=== PATIENT | female | born 1955 | race Caucasian/White ===

== ENCOUNTER 2022-10-31 12:57 | Observation (INO) | payer MEDICARE, SELFPAY ==
[2022-10-31] VITALS (15 sets, daily range): BP systolic 130–191; BP diastolic 80–116; PULSE 38–112; RESP 12–20; TEMP 36.7–37.3; O2SAT 92–98; BMI 22.8
--- NOTE | 2022-10-31 13:05 | PC.NURSE ---
MAUREEN BYERS at
--- NOTE | 2022-10-31 13:12 | PC.NURSE ---
87-89% on RA 2L NC applied improving patient's O2 to 93%.
--- NOTE | 2022-10-31 13:20 | CT_ITS ---
PROCEDURE INFORMATION: Exam: CT Head Without Contrast Exam date and time: 10/31/2022 1:34 PM Age: 67 years old Clinical indication: Dizziness TECHNIQUE: Imaging protocol: Computed tomography of the head without contrast. Radiation optimization: All CT scans at this facility use at least one of these dose optimization techniques: automated exposure control; mA and/or kV adjustment per patient size (includes targeted exams where dose is matched to clinical indication); or iterative reconstruction. REPORTING DATA: Count of CT and Cardiac NM exams in prior 12 months: This patient has received 0 known CTs and 0 known cardiac nuclear medicine studies in the 12 months prior to the current study. COMPARISON: No relevant prior studies available. FINDINGS: Brain: Chronic infarct involving the left cerebellum. Age-related involutional changes and chronic microvascular ischemic disease. No evidence for acute transcortical infarct. No mass effect or midline shift. No extra-axial collection. No acute intracranial hemorrhage. Basal cisterns are patent. Cerebral ventricles: No ventriculomegaly. Paranasal sinuses: Visualized sinuses are unremarkable. No fluid levels. Mastoid air cells: Visualized mastoid air cells are well aerated. Bones/joints: Unremarkable. No acute fracture. Soft tissues: Unremarkable. IMPRESSION: No evidence for acute transcortical infarct, acute intracranial hemorrhage, or mass effect.
--- NOTE | 2022-10-31 13:30 | PC.NURSE ---
pt ambulated to bathroom prio to going to CT
--- NOTE | 2022-10-31 13:40 | ECG_ITS ---
APPROVED REPORT Exam: Resting ECG HR:88 bpm ECG Measurements Heart Rate 88 AXES VA 179 P 44 QRSd 122 QRS -34 QT 390 T 77 QTc 435 Conclusion SINUS RHYTHM POSSIBLE LEFT ATRIAL ENLARGEMENT [-0.1mV P-WAVE IN V1/V2] LEFT AXIS DEVIATION [QRS AXIS < -30] POSSIBLE RIGHT VENTRICULAR CONDUCTION DELAY [RSR (QR) IN V1/V2] LEFT VENTRICULAR HYPERTROPHY AND ST-T CHANGE [VOLTAGE CRITERIA PLUS ST/T ABNORMALITY] ABNORMAL ECG UNCONFIRMED REPORT Electronically signed by : Edwardo Desai MD 11/01/2022 20:23:18
[2022-10-31 14:01] LABS: Chloride 96 mmol/L (98-107); Sodium 138 mmol/L (136-145)
[2022-10-31 14:02] LABS: Potassium 3.5 mmoL/L (3.5-5.1)
[2022-10-31 14:04] LABS: Alanine Aminotransferase 19 U/L (12-78); Albumin Level 4.7 g/dl (3.5-5.0); Albumin/Globulin Ratio 1.3 (1.1-1.8); Alkaline Phosphatase 114 U/L (38-126); Anion Gap 20.5 mEq/L (5-15); Aspartate Amino Transferase 25 U/L (14-36); Bilirubin,Total 0.5 mg/dl (0.2-1.3); Blood Urea Nitrogen 19 mg/dl (7-17); Carbon Dioxide 25 mmol/L (22.0-30.0); Creatinine Clearance Estimated 59 mL/min (50-200); Estimated Glomerular Filt Rate 62 ml/min (>60); GFR (African American) 76 ML/MIN (>60); Globulin 3.5 g/dL (1.3-3.2); Total Protein,Serum 8.2 g/dl (6.3-8.2)
[2022-10-31 14:05] LABS: Calcium 9.9 mg/dl (8.4-10.2); Glucose 132 mg/dl (74-100)
[2022-10-31 14:09] LABS: Basophils % 0.2 % (0.1-2.0); Eosinophils % 0.4 % (0.1-12.0); Hematocrit 42.1 % (37.0-47.0); Hemoglobin 13.5 g/dL (12.2-16.2); Lymphocytes # 0.6 K/mm3 (0.7-4.5); Lymphocytes % 8.7 % (10-50); Mean Corpuscular HGB Conc 32.1 g/dL (31.8-35.4); Mean Corpuscular Hemoglobin 25.2 pg (27.0-31.2); Mean Corpuscular Volume 78.4 fl (81-99); Mean Platelet Volume 7.2 fl (7.4-10.4); Monocytes # 0.2 K/mm3 (0.1-1.0); Monocytes % 2.6 % (1.7-9.3); Neutrophils # 5.6 K/mm3 (1.8-7.8); Neutrophils % 88.1 % (37.0-80.0); Platelet Count 462 K/mm3 (142-424); Red Blood Count 5.37 M/mm3 (4.20-5.40); Red Cell Distribution Width 17.7 % (11.5-17.5); White Blood Count 6.4 K/mm3 (4.8-10.8)
[2022-10-31 14:10] LABS: MANUAL DIFFERENTIAL MANUAL DIFFERENTIAL (MANUAL DIFF)
[2022-10-31 14:17] LABS: Lymphocytes % 10 % (10-50); Monocytes % 1 % (2-9); Neutrophils % 89 % (42-76); Total Cells Counted 100
[2022-10-31 14:18] LABS: Platelet Estimate Slight Inc; RBC Morphology Normal
--- NOTE | 2022-10-31 14:21 | PC.NURSE ---
BP 164/114 prior to Hydralazine IV
--- NOTE | 2022-10-31 14:44 | PC.NURSE ---
pt vomiting states she wet herself, clean gown and blankets put on pt
--- NOTE | 2022-10-31 14:52 | PC.NURSE ---
Reassessed patient's BP 152/102 HR 100. Upon reassessment patient states her dizziness in getting worse. notified.
[2022-10-31 15:16] LABS: Microscopic, Urine URINE MICROSCOPIC (MICROSCOPIC)
[2022-10-31 15:31] LABS: Appearance,Urine CLEAR (Clear); Bilirubin,Urine Negative (Negative); Blood, Urine Negative (Negative); Color,Urine YELLOW (Yellow); Glucose,Urine (UA) Negative (Negative); Ketones,Urine TRACE (Negative); Leukocyte Esterase,Urine Negative (Negative); Nitrate,Urine Negative (Negative); Protein,Urine 1+ (Negative); Specific Gravity, Urine >= 1.030 (1.005-1.030); Urobilinogen,Urine 0.2 EU/dl (0.2)
[2022-10-31 15:32] LABS: Bacteria,Urine 1+ /lpf; WBC,Urine Occasional #/hpf (0-3)
--- NOTE | 2022-10-31 15:49 | PC.NURSE ---
Rounded on patient; call ceja within reach. Patient resting comfortably.
--- NOTE | 2022-10-31 15:56 | PC.NURSE ---
Rounded on patient; patient stated Haldol helped nausea. @ BS
--- NOTE | 2022-10-31 16:04 | HMH.EDGENADL ---
Discharge Plan Disposition Patient Disposition: Home, Self-Care Condition: Good Prescriptions Prescriptions: New ondansetron 4 mg tablet,disintegrating 4 mg PO Q8H PRN (Reason: nausea and vomiting) 3 Days Qty: 10 0RF No Action losartan 100 mg tablet 100 mg PO DAILY Label Comments: TAKE 1 TABLET BY MOUTH EVERY DAY bupropion HCl 300 mg tablet extended release 24 hr 300 mg PO AM Referrals Follow up/Referrals: Sonal Alves APRN [Primary Care Provider] - See instructions Activity Restrictions/Add. Instructions Additional Instructions/Restrictions: Zofran as needed. Follow-up PCP in the morning. Return to ER for worsening Clinical Impressions Clinical Impression: Vertigo, Nausea & vomiting Discharge ED Provider: Karsten Marques General Adult HPI General Chief complaint: Dizziness Stated complaint: vertigo Time Seen by Provider: 10/31/22 13:04 Mode of Arrival: EMS Source of Information: Patient Limitations: No Limitations Description of Symptoms (Recalled from ER Triage Doc. by RN): Presents to ED via EMS with complaints of dizziness described as room spinning , generalized weakness, and vomiting since Tuesday morning. Patient has been unable to take BP medicaion (Losartan) due to n/v. Denies hx of vertigo. Denies urinary symptoms. History of Present Illness HPI narrative: 67yo F presents the ER secondary to dizziness. States the room is spinning. This began yesterday morning and has not stopped. Denies history of previous episode. Denies any recent illness, fever. Reports nausea and vomiting secondary to to the dizziness. Reports that she does has not been able to take her blood pressure medication for 2 days secondary to her extreme nausea. No fall or other injury. Related Data Home Medications Medication Instructions Recorded Confirmed bupropion HCl 300 mg 24 hr tablet, 300 mg PO AM Depression 10/31/22 10/31/22 extended release losartan 100 mg tablet 100 mg PO DAILY High blood pressure 10/31/22 10/31/22 Previous Rx's Medication Instructions Recorded ondansetron 4 mg disintegrating 4 mg PO Q8H PRN nausea and 10/31/22 tablet vomiting 3 days #10 tabs Allergies Allergy/AdvReac Type Severity Reaction Status Date / Time Cephalosporins Allergy Unknown Verified 10/31/22 14:10 [CEPHALOSPORINS] Penicillins [PENICILLINS] Allergy Unknown Verified 10/31/22 14:10 [facility] Disclaimer: The information contained in this section may have been updated after the patient was seen, as this information can be updated by other users. Social History Smoking Status: Current every day smoker alcohol intake: never current occupational status: retired Travel in the last 8 weeks: None ROS Obtained: Yes Systems reviewed as appropriate & no additional complaints except as documented Constitutional Constitutional: Reports as per HPI Physical Exam General General appearance: alert and in no apparent distress Head Head exam: atraumatic and normocephalic Eye Eye exam: Present normal appearance and PERRL ENT ENT exam: Present normal exam Neck Neck exam: Present full ROM and trachea midline; Absent tenderness or meningismus Chest Chest inspection: Present symmetric chest wall rise Respiratory Respiratory exam: Present normal lung sounds bilaterally; Absent respiratory distress Cardiovascular Cardiovascular exam: Present regular rate, normal rhythm and normal heart sounds Abdominal Exam Abdominal exam: Present soft and normal bowel sounds; Absent distention or tenderness Extremities Exam Extremities exam: Present normal inspection and full ROM; Absent tenderness Neurological Exam Neurological exam: Present alert, oriented X3 and CN II-XII intact Psychiatric Psychiatric exam: Present normal affect and normal mood Skin Skin exam: Present warm, dry and intact Medical Decision Making Medical Records Medical recor
--- NOTE | 2022-10-31 16:32 | PC.NURSE ---
pt reports feeling like needs to void, states she feels like she was not able to go well on bedpan earlier, pt requesting to use bsc. Staff assist x2 to bsc, pt reports dizziness with any movement. Pt unable to stand independently. Pt successfully able to void, urine strong smelling-concentrated in appearance. Notified ER pt was full staff assist x2 to stand and about urine. pt back in bed, call bed in reach.
--- NOTE | 2022-10-31 17:56 | PC.NURSE ---
walked patient in room and into the sanchez, patient tolerated well but daughter and patient both feel she should be admitted overnight. Spoke with ED doctor and he will discuss with hospitalist
--- NOTE | 2022-10-31 18:04 | PC.NURSE ---
Dr Marques talking to Dr Singer
--- NOTE | 2022-10-31 18:04 | PC.NURSE ---
Updated patient and family members on plan of care for patient. Nothing else requested by family or patient at this time.
--- NOTE | 2022-10-31 18:08 | PC.NURSE ---
covid swab sent to lab
--- NOTE | 2022-10-31 18:08 | PC.NURSE ---
non destructive testing supervisor notified of admission.
[2022-10-31 18:12] LABS: Coronavirus 19, PCR Not Detected (NotDetected); Influenza A, PCR Not Detected (NotDetected); Influenza B, PCR Not Detected (NotDetected)
--- NOTE | 2022-10-31 18:43 | PC.NURSE ---
Attempted to provide report, RN refused.
--- NOTE | 2022-10-31 18:58 | PC.NURSE ---
Patient and family notified of patient being moved to room 212 after change of shift. Allergy bracelet and fall risk bracelet placed on patient's left arm. Patient identification band also on left arm.
--- NOTE | 2022-10-31 19:07 | PC.NURSE ---
received report from Nahed in ED.
--- NOTE | 2022-10-31 19:07 | PC.NURSE ---
Report given to landcare officer Jackelyn GIBSON.
--- NOTE | 2022-10-31 19:10 | PC.NURSE ---
Given another update to patient's and daughter. Asked if they needed anything; nothing needed at this time. Call ceja within reach. Report handed off to shift supervisor rn.
--- NOTE | 2022-10-31 19:51 | PC.NURSE ---
pt arrived to floor at this time
--- NOTE | 2022-10-31 20:13 | EXP.HP ---
History of Present Illness *Admission Date: 10/31/22 *Reason for visit:: dizziness *History of present illness: This is a very pleasant 67-year-old female with a past medical history of hypertension and depression who presents emergency department today with complaints of dizziness. She reports dizziness began yesterday morning and has been consistent. She reports that the room is spinning. She also endorses nausea and vomiting associated with dizziness. She has not been able to do her blood pressure medicines in several days due to the nausea. She denies any fall or injury. She denies any fever or recent illness, But does complain of mild sinus congestion over the past. Upon admission to the hospital, she was noted to have nystagmus when looking to the left and states that her dizziness is worse in any position. She states the dizziness improves with her eyes closed. She was medicated in the emergency department and had mild relief in symptoms. She did try to ambulate prior to discharge from the ER and had worsening symptoms upon ambulation. It was determined that observation would be in her benefit. She is admitted to hospital service for further evaluation and management. [facility] Disclaimer: The information contained in this section may have been updated after the patient was seen, as this information can be updated by other users. Social History (Updated 10/31/22 @ 20:08 by Radha Corona RN) Smoking Status: Current every day smoker alcohol intake: never current occupational status: retired Travel in the last 8 weeks: None Review of Systems Review of Systems Review of systems:: pertinent systems reviewed and negative unless documented below Review of systems (narrative): See HPI Meds Home Medications and Allergies Home Medications Medication Instructions Recorded Confirmed Type bupropion HCl 300 mg 24 hr tablet, 300 mg PO AM Mood 10/31/22 10/31/22 History extended release losartan 100 mg tablet 100 mg PO DAILY High blood pressure 10/31/22 10/31/22 History New Prescriptions to Start Prescriptions: Allergies Allergy/AdvReac Type Severity Reaction Status Date / Time Cephalosporins Allergy Unknown Verified 10/31/22 14:10 [CEPHALOSPORINS] Penicillins [PENICILLINS] Allergy Unknown Verified 10/31/22 14:10 Exam Data for Last 24 hours Vital signs and Labs for Last 24 Hours: Temp Pulse Resp BP Pulse Ox 98.5 F 100 H 17 161/95 H 98 10/31/22 12:57 10/31/22 18:30 10/31/22 18:30 10/31/22 18:30 10/31/22 18:30 Laboratory Results - last 24 hr 10/31/22 13:51: WBC 6.4, RBC 5.37, Hgb 13.5, Hct 42.1, MCV 78.4 L, MCH 25.2 L, MCHC 32.1, RDW 17.7 H, Plt Count 462 H, MPV 7.2 L, Neut % (Auto) 88.1 H, Lymph % (Auto) 8.7 L, [place] % (Auto) 2.6, Eos % (Auto) 0.4, Baso % (Auto) 0.2, Neut # (Auto) 5.6, Lymph # (Auto) 0.6 L, [place] # (Auto) 0.2, Eos # (Auto) 0.0, Baso # (Auto) 0.0, Total Counted 100, Neutrophils % (Manual) 89 H, Lymphocytes % (Manual) 10, Monocytes % (Manual) 1 L, Platelet Estimate Slight inc, RBC Morphology Normal 10/31/22 13:51: Sodium 138, Potassium 3.5, Chloride 96 L, Carbon Dioxide 25, Anion Gap 20.5 H, BUN 19 H, Creatinine 0.90, Estimated Creat Clear 59, Estimated GFR 62, Est GFR ( Amer) 76, Glucose 132 H, Calcium 9.9, Total Bilirubin 0.5, AST 25, ALT 19, Alkaline Phosphatase 114, Total Protein 8.2, Albumin 4.7, Globulin 3.5 H, Albumin/Globulin Ratio 1.3 10/31/22 15:10: Urine Color Yellow, Urine Appearance Clear, Urine pH 6.0, Ur Specific [place] >= 1.030, Urine Protein 1+, Urine Glucose (UA) Negative, Urine Ketones Trace, Urine Blood Negative, Urine Nitrate Negative, Urine Bilirubin Negative, Urine Urobilinogen 0.2, Ur Leukocyte Esterase Negative, Urine RBC None, Urine WBC Occasional, Ur Squamous Epith Cells None, Urine Bacteria 1+ 10/31/22 18:04: SARS-CoV-2 (PCR) Not detected, Influenza A Untype (PCR) Not detected, Influenza Type B (PCR) Not detected I & O for Last
--- NOTE | 2022-10-31 22:21 | PC.NURSE ---
got pt up to bsc with 2 assists, pt very wobbly and impulsive, pt voided, got pt back to bed and placed bed alarm on bed, call light within reach
[2022-11-01] VITALS: BP 172/108; PULSE 110; RESP 20; TEMP 36.8; O2SAT 92
[2022-11-01 04:00] VITALS: BP 170/112; PULSE 101; RESP 19; TEMP 36.9; O2SAT 90; BMI 21.7
[2022-11-01 07:09] LABS: Alanine Aminotransferase 14 U/L (12-78); Albumin Level 4.2 g/dl (3.5-5.0); Albumin/Globulin Ratio 1.4 (1.1-1.8); Alkaline Phosphatase 99 U/L (38-126); Anion Gap 13.4 mEq/L (5-15); Aspartate Amino Transferase 23 U/L (14-36); Bilirubin,Total 0.4 mg/dl (0.2-1.3); Blood Urea Nitrogen 24 mg/dl (7-17); Calcium 9.3 mg/dl (8.4-10.2); Carbon Dioxide 26 mmol/L (22.0-30.0); Chloride 104 mmol/L (98-107); Creatinine Clearance Estimated 56 mL/min (50-200); Estimated Glomerular Filt Rate 83 ml/min (>60); GFR (African American) 101 ML/MIN (>60); Globulin 2.9 g/dL (1.3-3.2); Glucose 114 mg/dl (74-100); Magnesium 2.2 mg/dl (1.6-2.3); Potassium 3.4 mmoL/L (3.5-5.1); Sodium 140 mmol/L (136-145); Total Protein,Serum 7.1 g/dl (6.3-8.2)
[2022-11-01 07:11] LABS: Basophils % 0.1 % (0.1-2.0); Eosinophils % 0.2 % (0.1-12.0); Hematocrit 38.1 % (37.0-47.0); Hemoglobin 12.2 g/dL (12.2-16.2); Lymphocytes # 0.8 K/mm3 (0.7-4.5); Lymphocytes % 7.8 % (10-50); Mean Corpuscular HGB Conc 32.1 g/dL (31.8-35.4); Mean Corpuscular Hemoglobin 25.2 pg (27.0-31.2); Mean Corpuscular Volume 78.5 fl (81-99); Mean Platelet Volume 7.9 fl (7.4-10.4); Monocytes # 0.5 K/mm3 (0.1-1.0); Monocytes % 4.8 % (1.7-9.3); Neutrophils # 8.3 K/mm3 (1.8-7.8); Platelet Count 453 K/mm3 (142-424); Red Blood Count 4.85 M/mm3 (4.20-5.40); Red Cell Distribution Width 17.9 % (11.5-17.5); White Blood Count 9.6 K/mm3 (4.8-10.8)
[2022-11-01 07:12] LABS: MANUAL DIFFERENTIAL MANUAL DIFFERENTIAL (MANUAL DIFF)
--- NOTE | 2022-11-01 07:21 | HMH.PHAINT1 ---
Pharmacy Intervention Comments: HOME MEDICATION LIST VERIFIED THROUGH LIST FROM OUTSIDE PHARMACY.
[2022-11-01 08:00] VITALS: PULSE 116; RESP 18; TEMP 37.2; O2SAT 96
[2022-11-01 08:24] LABS: Lymphocytes % 6 % (10-50); Monocytes % 3 % (2-9); Neutrophils % 91 % (42-76); Total Cells Counted 100
[2022-11-01 08:25] LABS: Microcytosis 1+
[2022-11-01 08:48] LABS: Platelet Estimate Slight Increase
--- NOTE | 2022-11-01 11:27 | HMH.PTEV ---
Physical Therapy Evaluation Rehab PT IP Evaluation Start: 10/31/22 18:18 Freq: ONCE Status: Active Protocol: Document 11/01/22 09:30 PHORNE (Rec: 11/01/22 11:27 PHORNE [id number]) Subjective/History History History 67 yowf adm to hospital with c /o dizziness/vertigo and general weakness x 1-2 days. She reports never having any episodes similar to this in the past. She reports vertigo is continuous and lasting for 5-10 mins per episode and no specific position brings on her symptoms. She reports 1 wk hx of R inner ear pain, but no tinnitus. She reports she lives with her spouse, 1-2 steps to enter the home and she is generally independent with all mobility without AD. Subjective Subjective Current vertigo symptoms are decreased, but she continues to be nauseated and unbalanced with walking. Rehab PT IP Eval Objective Appearance Patient Behavior Appropriate Patient Orientation Person,Place,Time Difficulty following instructions none Speech Pattern Clear Ambulation Patient Able to Ambulate Yes Ambulation Observation IP General Gait Pattern Observation Ataxic Gait Ambulation Distance (feet) 20 Ambulation Assistive Device None Ambulation Ability Contact Guard/Hand Hold Balance Ability to Arise Able, uses arms to help Sitting Balance Steady, safe Standing Balance Steady, wide stance Dynamic Sitting Balance Ability Good Dynamic Standing Balance Ability Fair Transfers Bed Transfer Ability Supervision/Stand by Chair Transfer Ability Contact Guard/Hand Hold Sit to Stand Bed Transfer Ability Contact Guard/Hand Hold Sit to Stand Chair Transfer Ability Contact Guard/Hand Hold ROM All Extremities PT ROM Status WFL MMT All Extremities PT MMT WFL Rehab PT IP prob,goals,plan Problems Date of Evaluation: 11/01/22 Discharge Plan PT Discharge Plan Pt is appropriate to return home once medically stable for d/c. Recommend outpatient therapy for vertigo treatment as tolerated. G -code Required No Eval Complexit
--- NOTE | 2022-11-01 11:27 | EXP.DC.SUM ---
General Admission date:: 10/31/22 HPI HPI HPI: This is a very pleasant 67-year-old female with a past medical history of hypertension and depression who presents emergency department today with complaints of dizziness. She reports dizziness began yesterday morning and has been consistent. She reports that the room is spinning. She also endorses nausea and vomiting associated with dizziness. She has not been able to do her blood pressure medicines in several days due to the nausea. She denies any fall or injury. She denies any fever or recent illness, But does complain of mild sinus congestion over the past. Upon admission to the hospital, she was noted to have nystagmus when looking to the left and states that her dizziness is worse in any position. She states the dizziness improves with her eyes closed. She was medicated in the emergency department and had mild relief in symptoms. She did try to ambulate prior to discharge from the ER and had worsening symptoms upon ambulation. It was determined that observation would be in her benefit. She is admitted to hospital service for further evaluation and management. Hospital Course Hospital Course Hospital Course: This is a 67-year-old female who is admitted to the hospital for further observation of vertigo.? Work-up in the ER included CT, no acute stroke. Labs relatively. Hypertensive but this improved with resumption of home regimen and initiation of amlodipine. At this time suspect vertigo is benign or related to fluid on her ear or otolith dysfunction. PT evaluated, recommend outpatient vestibular rehab. Stable for discharge home. Problems addressed as follows: Vertigo Nausea and vomiting Work-up in the ER showed no concern for stroke on CT. Labs relatively unremarkable. Treated symptomatically with meclizine. Improvement in vertigo by the morning but not complete resolution. PT evaluated, recommended outpatient PT and home with walker for increased stability. Medically stable for discharge home. We will continue outpatient treatment. Sent home with meclizine, Zofran. No further emesis during hospitalization, did have nausea after breakfast secondary to dizziness. Hypertension Resumed oral ARB. Tolerating well. Still hypertensive, initiated on low-dose amlodipine. Continue for now. Follow-up with PCP for further adjustment. Extensive amount of time spent counseling patient and family this morning. Stable for discharge home. Offered reassurance and counseled on expectations after discharge. Medication sent to [facility]. Initiate Flonase for nasal congestion and allergy symptoms. No indication for antibiotics at this time. No concern for otitis media. Spent 40 minutes in discharge counseling and direct care with patient. Exam Data for Last 24 hours Vital signs and Labs for Last 24 Hours: Temp Pulse Resp BP Pulse Ox 98.9 F 116 H 18 170/112 H 96 11/01/22 08:00 11/01/22 08:00 11/01/22 08:00 11/01/22 04:00 11/01/22 08:00 Laboratory Results - last 24 hr 10/31/22 13:51: WBC 6.4, RBC 5.37, Hgb 13.5, Hct 42.1, MCV 78.4 L, MCH 25.2 L, MCHC 32.1, RDW 17.7 H, Plt Count 462 H, MPV 7.2 L, Neut % (Auto) 88.1 H, Lymph % (Auto) 8.7 L, [place] % (Auto) 2.6, Eos % (Auto) 0.4, Baso % (Auto) 0.2, Neut # (Auto) 5.6, Lymph # (Auto) 0.6 L, [place] # (Auto) 0.2, Eos # (Auto) 0.0, Baso # (Auto) 0.0, Total Counted 100, Neutrophils % (Manual) 89 H, Lymphocytes % (Manual) 10, Monocytes % (Manual) 1 L, Platelet Estimate Slight inc, RBC Morphology Normal 10/31/22 13:51: Sodium 138, Potassium 3.5, Chloride 96 L, Carbon Dioxide 25, Anion Gap 20.5 H, BUN 19 H, Creatinine 0.90, Estimated Creat Clear 59, Estimated GFR 62, Est GFR ( Amer) 76, Glucose 132 H, Calcium 9.9, Total Bilirubin 0.5, AST 25, ALT 19, Alkaline Phosphatase 114, Total Protein 8.2, Albumin 4.7, Globulin 3.5 H, Albumin/Globulin Ratio 1.3 10/31/22 15:10: Urine Color Yellow, Urine Appearance Clear, Urine pH 6.0, Ur Sp
--- NOTE | 2022-11-01 11:30 | PC.NURSE ---
Notified Dr. Singer - 157/94 107HR 100.2 oral temperature. No new orders given.
--- NOTE | 2022-11-01 14:01 | CARE MANAGER ---
Initially, it was though tpatient needed walker, however she already had one at home. At that time she had chosen [facility] for [facility]. Now she needs BSC. Order and information sent. ARTHUR Harrell
--- NOTE | 2022-11-01 14:19 | HMH.PHAINT1 ---
Pharmacy Intervention Comments: Discharge medication counseling completed. Patient was asleep so I spoke to her daughter. She is to start the following: -amlodipine: discussed potential side effects of headache and drowsiness and said to inform provider if dizziness occurred after taking -flonase: told of potential side effects of nasal irritation, change in taste and/or smell, or headache after use -meclizine:as needed for dizziness. Said main side effect was drowsiness. Told her to make sure not to drive after taking. -ondansetron: as needed for nausea/vomiting. Warned of side effects such as potential headache or drowsiness Patient's daughter verbalized understanding and had no questions.
--- NOTE | 2022-11-02 14:05 | CARE MANAGER ---
Left message for post-discharge follow-up phone call, no answer.
--- NOTE | 2022-11-03 11:25 | CARE MANAGER ---
Contacted patient related hospital discharge. Spoke with daughter who states they received patient's new medications and are aware of follow up appointment. Denies questions or concerns. ARTHUR Harrell
== END 2022-11-01 16:24 | disposition home or self-care (01) ==
LOC: ER 17:26 → 2ND 18:39
PROVIDERS: Admitting Provider Internal Medicine Adolescent Medicine; Emergency Provider Family Medicine; PCP Nurse Practitioner Family; Visit Provider Internal Medicine Adolescent Medicine
DX: R42 Dizziness and giddiness (principal); I10 Essential (primary) hypertension; Z79.899 Other long term (current) drug therapy; Z20.822 Contact with and (suspected) exposure to COVID-19
CPT/HCPCS: G0378; 36415; 70450; 80053; 81001; 83735; 85007; 85025; 87636; 93005; 97162; 99285; C9803; J2405; U0003; U0005

== ENCOUNTER 2024-01-19 14:05 | Outpatient (CLI) | payer MEDICARE, SELFPAY ==
[2024-01-19 14:08] LABS: Basophils # 0.1 K/mm3 (0-0.2); Basophils % 1.1 % (0.1-2.0); Eosinophils # 0.2 K/mm3 (0.0-0.4); Eosinophils % 3.3 % (0.1-12.0); Hematocrit 34.5 % (37.0-47.0); Hemoglobin 10.7 g/dL (12.2-16.2); Lymphocytes # 1.3 K/mm3 (0.7-4.5); Lymphocytes % 25.6 % (10-50); Mean Corpuscular Hemoglobin 23.2 pg (27.0-31.2); Mean Corpuscular Volume 74.8 fl (81-99); Mean Platelet Volume 8.1 fl (7.4-10.4); Monocytes # 0.3 K/mm3 (0.1-1.0); Monocytes % 5.8 % (1.7-9.3); Neutrophils # 3.2 K/mm3 (1.8-7.8); Neutrophils % 64.1 % (37.0-80.0); Platelet Count 501 K/mm3 (142-424); Red Blood Count 4.61 M/mm3 (4.20-5.40); Red Cell Distribution Width 18.7 % (11.5-17.5); White Blood Count 4.9 K/mm3 (4.8-10.8)
[2024-01-19 14:38] LABS: Erythrocyte Sedimentation Rate 11 mm/hr (0-30)
[2024-01-19 14:44] LABS: Alanine Aminotransferase 13 U/L (12-78); Albumin Level 4.3 g/dl (3.5-5.0); Albumin/Globulin Ratio 1.3 (1.1-1.8); Alkaline Phosphatase 96 U/L (38-126); Anion Gap 13.3 mEq/L (5-15); Aspartate Amino Transferase 19 U/L (14-36); Bilirubin,Total 0.6 mg/dl (0.2-1.3); Blood Urea Nitrogen 18 mg/dl (7-17); Carbon Dioxide 27 mmol/L (22.0-30.0); Chloride 100 mmol/L (98-107); Chol/HDL Ratio 2.3 (1-3.5); Cholesterol 219 mg/dl (140-200); Estimated Glomerular Filt Rate 62 ml/min (>60); GFR (African American) 75 ML/MIN (>60); Globulin 3.2 g/dL (1.3-3.2); Glucose 92 mg/dl (74-100); HDL Cholesterol 96 mg/dl (40-60); Magnesium 2.1 mg/dl (1.6-2.3); Phosphorous 3.8 mg/dl (2.5-4.5); Potassium 4.3 mmoL/L (3.5-5.1); Sodium 136 mmol/L (136-145); Total Protein,Serum 7.5 g/dl (6.3-8.2); Triglycerides 117 mg/dl (30-150); Uric Acid 2.5 mg/dl (2.5-6.2); VLDL Cholesterol 23 mg/dL (0-40)
[2024-01-19 14:55] LABS: C-Reactive Protein 26.5 mg/L (0-4); Direct LDL Cholesterol 77.49 mg/dL (100-129)
[2024-01-19 15:00] LABS: 25-OH Vitamin D, Total 20.4 ng/mL (30-100); Free T4 (Free Thyroxine) 1.12 ng/dl (0.78-2.19)
[2024-01-19 15:15] LABS: Thyroid Stimulating Hormone 1.91 uIU/mL (0.465-4.68)
[2024-01-19 15:50] LABS: Vitamin B12 389 pg/mL (239-931)
[2024-01-19 15:53] LABS: Folate 6.75 ng/mL
[2024-01-19 16:26] LABS: Iron 49 ug/dL (37-170)
[2024-01-19 16:35] LABS: Total Iron Binding Capacity 426 ug/dL (265-497)
[2024-01-19 16:35] LABS: Microscopic, Urine URINE MICROSCOPIC (MICROSCOPIC)
[2024-01-19 16:40] LABS: Appearance,Urine CLEAR (Clear); Bilirubin,Urine Negative (Negative); Blood, Urine Negative (Negative); Color,Urine YELLOW (Yellow); Glucose,Urine (UA) Negative (Negative); Ketones,Urine Negative (Negative); Leukocyte Esterase,Urine 2+ (Negative); Nitrate,Urine Negative (Negative); Protein,Urine Negative (Negative); Urobilinogen,Urine 0.2 EU/dl (0.2)
[2024-01-19 16:56] LABS: Bacteria,Urine 4+ /lpf; Squamous Epithelial Cell,Urine Occasional #/hpf (0-5)
[2024-01-19 17:02] LABS: Ferritin 8.56 ng/ml (11.1-264)
[2024-01-23 20:07] LABS: Anti-Centromere B Antibodies <0.2 AI (0.0-0.9); Anti-DNA (DS) Ab Qn 8 IU/mL (0-9); Anti-Jo-1 <0.2 AI (0.0-0.9); Antichromatin Antibodies <0.2 AI (0.0-0.9); Antiscleroderma-70 Antibodies <0.2 AI (0.0-0.9); RNP Antibodies 1.3 AI (0.0-0.9); Sjogren's Anti-SS-A >8.0 AI (0.0-0.9); Sjogren's Anti-SS-B <0.2 AI (0.0-0.9)
[2024-02-03 09:33] LABS: Anti-Centromere B Abs Charge YES; Anti-DNA (DS) Ab Charge YES; Anti-Jo-1 Charge YES; Antichromatin Abs Charge YES; Antinuclear Antibodies (ANA) POSITIVE; Antiscleroderma-70 Abs Charge YES; RNP Antibodies Charge YES; Sjogren's Anti-SS-A Ab Charge YES; Sjogren's Anti-SS-B Ab Charge YES; Smith Antibodies Charge YES
== END 2024-01-19 23:59 | disposition home or self-care (01) ==
LOC: LAB.DROPOF 14:05
PROVIDERS: PCP Nurse Practitioner Family; Visit Provider Nurse Practitioner Family
DX: E78.5 Hyperlipidemia, unspecified; M25.50 Pain in unspecified joint; R53.83 Other fatigue; I10 Essential (primary) hypertension; R41.3 Other amnesia; R41.0 Disorientation, unspecified; R42 Dizziness and giddiness; E55.9 Vitamin D deficiency, unspecified; R29.6 Repeated falls; Z13.1 Encounter for screening for diabetes mellitus; Z13.220 Encounter for screening for lipoid disorders; Z72.0 Tobacco use
CPT/HCPCS: 80050; 80053; 80061; 81001; 82306; 82607; 82728; 82746; 83036; 83540; 83550; 83735; 84100; 84156; 84439; 84443; 84550; 85025; 85651; 86038; 86140; 86225; 86235; 87086; 87088; 87186

== ENCOUNTER 2024-04-03 16:35 | Outpatient (CLI) | payer MEDICARE, SELFPAY ==
[2024-04-03 16:45] LABS: Basophils # 0.1 K/mm3 (0-0.2); Basophils % 1.1 % (0.1-2.0); Eosinophils # 0.2 K/mm3 (0.0-0.4); Eosinophils % 3.1 % (0.1-12.0); Hematocrit 44.1 % (37.0-47.0); Hemoglobin 14.9 g/dL (12.2-16.2); Lymphocytes # 1.3 K/mm3 (0.7-4.5); Lymphocytes % 17.7 % (10-50); Mean Corpuscular HGB Conc 33.8 g/dL (31.8-35.4); Mean Corpuscular Hemoglobin 29.8 pg (27.0-31.2); Mean Platelet Volume 7.3 fl (7.4-10.4); Monocytes # 0.5 K/mm3 (0.1-1.0); Monocytes % 6.6 % (1.7-9.3); Neutrophils # 5.3 K/mm3 (1.8-7.8); Neutrophils % 71.5 % (37.0-80.0); Platelet Count 355 K/mm3 (142-424); Red Blood Count 5.01 M/mm3 (4.20-5.40); Red Cell Distribution Width 19.5 % (11.5-17.5); White Blood Count 7.4 K/mm3 (4.8-10.8)
[2024-04-03 18:16] LABS: Ferritin 41.9 ng/ml (11.1-264)
== END 2024-04-03 23:59 | disposition home or self-care (01) ==
LOC: LAB.DROPOF 16:35
PROVIDERS: PCP Nurse Practitioner Family; Visit Provider Nurse Practitioner Family
DX: D50.9 Iron deficiency anemia, unspecified (principal)
CPT/HCPCS: 82728; 85025

== ENCOUNTER 2025-02-01 11:05 | Outpatient (CLI) | payer MEDICARE, SELFPAY ==
[2025-02-01 17:13] LABS: Hematocrit 42.1 % (37.0-47.0); Hemoglobin 13.8 g/dL (12.2-16.2); Immature Granulocytes % 0.3 %; Mean Corpuscular HGB Conc 32.8 g/dL (31.8-35.4); Mean Corpuscular Hemoglobin 30.3 pg (27.0-31.2); Mean Corpuscular Volume 92.3 fl (81-99); Nucleated Red Blood Cells % 0 %; Platelet Count 322 K/mm3 (142-424); Red Blood Count 4.56 M/mm3 (4.20-5.40); Red Cell Distribution Width-SD 46.5 fL; White Blood Count 7.7 K/mm3 (4.8-10.8)
[2025-02-01 18:03] LABS: Iron 90 ug/dL (37-170)
[2025-02-01 18:14] LABS: Total Iron Binding Capacity 290 ug/dL (265-497)
[2025-02-01 18:18] LABS: 25-OH Vitamin D, Total 23.6 ng/mL (30-100)
[2025-02-01 18:38] LABS: Ferritin 46.2 ng/ml (11.1-264)
[2025-02-01 21:13] LABS: Vitamin B12 346 pg/mL (239-931)
== END 2025-02-01 23:59 | disposition home or self-care (01) ==
PROVIDERS: PCP Nurse Practitioner Family; Visit Provider Nurse Practitioner Family
DX: D50.9 Iron deficiency anemia, unspecified (principal); E55.9 Vitamin D deficiency, unspecified
CPT/HCPCS: 82306; 82607; 82728; 83540; 83550; 85025

== ENCOUNTER 2025-02-12 12:28 | Outpatient (CLI) | payer MEDICARE, SELFPAY ==
[2025-02-12 19:22] LABS: Albumin Level 4.2 g/dl (3.5-5.0); Chloride 102 mmol/L (98-107); Potassium 4.2 mmoL/L (3.5-5.1); Sodium 139 mmol/L (136-145)
[2025-02-12 19:24] LABS: Blood Urea Nitrogen 20 mg/dl (7-17); Creatinine,Serum 0.80 mg/dl (0.52-1.04); Estimated Glomerular Filt Rate 71 ml/min (>60); GFR (African American) 86 ML/MIN (>60)
[2025-02-12 19:25] LABS: Alanine Aminotransferase 12 U/L (12-78); Albumin/Globulin Ratio 1.7 (1.1-1.8); Alkaline Phosphatase 89 U/L (38-126); Anion Gap 13.2 mEq/L (5-15); Aspartate Amino Transferase 22 U/L (14-36); Bilirubin,Total 0.4 mg/dl (0.2-1.3); Calcium 9.9 mg/dl (8.4-10.2); Carbon Dioxide 28 mmol/L (22.0-30.0); Cholesterol 211 mg/dl (140-200); Globulin 2.5 g/dL (1.3-3.2); Glucose 91 mg/dl (74-100); HDL Cholesterol 85 mg/dl (40-60); Total Protein,Serum 6.7 g/dl (6.3-8.2); Triglycerides 109 mg/dl (30-150)
[2025-02-12 20:18] LABS: Thyroid Stimulating Hormone 1.76 uIU/mL (0.465-4.68)
== END 2025-02-12 23:59 | disposition home or self-care (01) ==
LOC: LAB.DROPOF 02-14 09:22
PROVIDERS: PCP Nurse Practitioner Family; Visit Provider Nurse Practitioner Family
DX: L93.0 Discoid lupus erythematosus (principal); I10 Essential (primary) hypertension
CPT/HCPCS: 80053; 80061; 84443